=== PATIENT | male | born 1935 | race Caucasian/White ===

== ENCOUNTER 2021-05-06 08:53 | Observation (INO) | payer MEDICARE, OTHER ==
[~2021-05-06] VITALS: Ht 172.7 cm; Wt 83.0 kg
[2021-05-06 09:55] LABS: HEMOGLOBIN 15.9 gm/dl (14.0-17.5); RED BLOOD COUNT 5.16 M/UL (4.20-5.50); WHITE BLOOD COUNT 8.9 K/UL (4.5-11.0)
[2021-05-06 11:05] LABS: BUN/CREATININE RATIO 25 (0-10)
[2021-05-06] MEDS ORDERED: ALENDRONATE SOD70 MG PO (15:25)
[2021-05-06] MEDS ORDERED: ZETIA10 MG PO (15:26)
[2021-05-06] MEDS ORDERED: AMLODIPINE BESY10 MG PO (15:27)
[2021-05-06] MEDS ORDERED: LISINOPRIL20 MG PO (15:27)
[2021-05-06] MEDS ORDERED: PREDNISONE10 MG PO (15:28)
[2021-05-06] MEDS ORDERED: TYLENOL 8 HOUR650 MG PO (15:29)
[2021-05-06] MEDS ORDERED: MEN 50 PLUS MU1 EACH PO (15:31)
[2021-05-07 03:30] LABS: RED BLOOD COUNT 4.82 M/UL (4.20-5.50); WHITE BLOOD COUNT 10.5 K/UL (4.5-11.0)
[2021-05-07 03:49] LABS: BUN/CREATININE RATIO 27 (0-10)
[2021-05-07] MEDS ORDERED: ATORVASTATIN CA20 MG PO (16:46)
[2021-05-07] MEDS ORDERED: ASPIRIN EC81 MG PO (16:47)
== END 2021-05-07 18:58 | disposition home or self-care (01) ==
LOC: ER1 08:53 → CDU 13:03 → M/S 13:03
PROVIDERS: Emergency Medicine; Physician Assistant; ADMIT Internal Medicine
DX: R07.89 Other chest pain (principal); R00.2 Palpitations; R91.1 Solitary pulmonary nodule; I10 Essential (primary) hypertension; E78.5 Hyperlipidemia, unspecified; M35.3 Polymyalgia rheumatica; R00.1 Bradycardia, unspecified; R91.8 Other nonspecific abnormal finding of lung field; Z79.52 Long term (current) use of systemic steroids; Z79.899 Other long term (current) drug therapy; Z91.013 Allergy to seafood; Z20.822 Contact with and (suspected) exposure to COVID-19
CPT/HCPCS: 36415; 71045; 71046; 71250; 80048; 80053; 80061; 82550; 82553; 83690; 83735; 83874; 84100; 84439; 84443; 84484; 85025; 93005; 93270; 96372; 99285; G0378; J1650; U0002

== ENCOUNTER → 2021-08-13 | Outpatient (CLI) | payer MEDICARE, OTHER ==
[~2021-08-13] MED LIST: ALENDRONATE SOD70 MG PO; AMLODIPINE BESY10 MG PO; ASPIRIN EC81 MG PO; ATORVASTATIN CA20 MG PO; LISINOPRIL20 MG PO; MEN 50 PLUS MU1 EACH PO; PREDNISONE10 MG PO; TYLENOL 8 HOUR650 MG PO; ZETIA10 MG PO
== END ==
LOC: EXRD 08:43
DX: M25.552 Pain in left hip (principal); M54.50 Low back pain, unspecified
CPT/HCPCS: 72110; 73502

== ENCOUNTER → 2021-08-20 | Outpatient (CLI) | payer MEDICARE, OTHER | LOC: EXRD 08:29 | DX: R91.1 Solitary pulmonary nodule (principal); J98.4 Other disorders of lung | CPT/HCPCS: 71046 ==

== ENCOUNTER 2021-08-27 09:46 | Emergency (ER) | payer MEDICARE, OTHER ==
[2021-08-27 10:29] LABS: HEMOGLOBIN 14.3 gm/dl (14.0-17.5); RED BLOOD COUNT 4.74 M/UL (4.20-5.50); WHITE BLOOD COUNT 9.7 K/UL (4.5-11.0)
[2021-08-27 11:18] LABS: BUN/CREATININE RATIO 21 (0-10)
== END 2021-08-27 15:08 | disposition home or self-care (01) ==
LOC: ER1 09:46
PROVIDERS: Physician Assistant
DX: R91.8 Other nonspecific abnormal finding of lung field (principal); C79.51 Secondary malignant neoplasm of bone; R10.811 Right upper quadrant abdominal tenderness; I10 Essential (primary) hypertension; Z88.5 Allergy status to narcotic agent
CPT/HCPCS: 80053; 81001; 82550; 82553; 83874; 84484; 85025; 93005; 99285; Q9967